=== PATIENT | male | born 1980 | race Two or more races ===

== ENCOUNTER 2017-04-06 16:24 | Emergency (ER) | payer MEDICAID ==
[2017-04-06 16:30] VITALS: RESP 16
--- NOTE | 2017-04-06 16:48 | EDPHY ---
H & P Stated Complaint: Sent to ED for eval of DVT LLE;ACL repair last week in [place] Time Seen by Provider: 04/06/17 16:48 HPI/ROS: CHIEF COMPLAINT: Left calf pain, recent ACL surgery HISTORY OF PRESENT ILLNESS: The patient presents to the ED with left calf pain following recent ACL surgery 1 week ago. The patient had an outpatient ultrasound ordered which demonstrated a DVT in his leg. The patient has no complaints of chest pain or difficulty breathing. The patient has no prior history of PE or DVT. The patient complains of mild pain in the calf without the associated fever or neurologic symptoms. REVIEW OF SYSTEMS: A comprehensive 10 point review of systems is otherwise negative aside from elements mentioned in the history of present illness. Source: Patient - Personal History Current Tetanus Diphtheria and Acellular Pertussis (TDAP): Yes - Medical/Surgical History Other PMH: ACL repair - Social History Smoking Status: Never smoked - Physical Exam Exam: General Appearance: Alert, no distress Eyes: Pupils equal and round no pallor or injection ENT, Mouth: Mucous membranes moist Respiratory: There are no retractions, lungs are clear to auscultation Cardiovascular: Regular rate and rhythm Gastrointestinal: Abdomen is soft and nontender, no masses, bowel sounds normal Neurological: 5/5 strength noted throughout the bilateral lower extremities Skin: Warm and dry, no rashes Musculoskeletal: Neck is supple nontender Extremities: Left calf tenderness, in knee immobilizer Constitutional: Initial Vital Signs Temperature (C) 36.7 C 04/06/17 16:27 Heart Rate 70 04/06/17 16:27 Respiratory Rate 16 04/06/17 16:27 Blood Pressure 130/75 H 04/06/17 16:27 O2 Sat (%) 96 04/06/17 16:27 O2 Delivery Mode Room Air Allergies/Adverse Reactions: No Known Allergies Allergy (Verified 04/06/17 16:27) Home Medications: Medication Instructions Recorded Enoxaparin [Lovenox 80 MG (*)] 80 mg SQ BID #10 syr 04/06/17 Warfarin Sodium [Coumadin 5MG (*)] 5 mg PO DAILY #20 tab 04/06/17 Medical Decision Making - Diagnostics Imaging Results: Imaging Impressions Extremity Venous Study 04/06/17 15:15 Impression: 1. Occlusive thrombosis involving the left gastrocnemius vein. 2. No involvement of the popliteal vein or veins of the thigh. Findings discussed with the physician psychiatric technician assistant working with Dr. Troy Dunlap on 04/06/2017 at 1605 hours. ED Course/Re-evaluation: The patient presents to the ED with an isolated gastroc vein thrombosis following knee surgery. The patient will be anticoagulated with Lovenox and Coumadin. The patient will be referred to Dr. Cooper our on-call outpatient primary care provider for follow-up. The patient has been instructed to return to the ED for any chest pain or shortness of breath. I spoke with Dr. Cooper on the telephone and his office will contact the patient tomorrow to schedule a follow-up visit. The patient is also been given Dr. Harris's telephone number in the event he does not hear from the office. He has been instructed of the importance of making sure he has a follow-up visit in the next week. Differential Diagnosis: Differential diagnosis considered includes DVT, cellulitis, abscess, arterial thrombosis - Data Points Laboratory Results: Laboratory Results 04/06/17 16:49 04/06/17 16:49 04/06/17 04/06/17 16:49 16:49 WBC 9.22 10^3/uL 10^3/uL (3.80-9.50) RBC 5.52 10^6/uL 10^6/uL (4.40-6.38) Hgb 16.2 g/dL g/dL (13.7-17.5) Hct 46.2 % % (40.0-51.0) MCV 83.7 fL fL (81.5-99.8) MCH 29.3 pg pg (27.9-34.1) MCHC 35.1 g/dL g/dL (32.4-36.7) RDW 12.5 % % (11.5-15.2) Plt Count 251 10^3/uL 10^3/uL (150-400) Sodium 137 mEq/L mEq/L (134-144) Potassium 4.6 mEq/L mEq/L (3.5-5.2) Chloride 98 mEq/L mEq/L (97-110) Carbon Dioxide 24 mEq/l mEq/l (22-31) Anion Gap 15 mEq/L mEq/L (8-16) BUN 19 mg/dL mg/dL (7-23) Creatinine 1.0 mg/dL mg/dL (0.7-1.3) Estimated GFR > 60 Glucose 83 mg/dL mg/dL (70-100) Calcium 9.9 mg/dL mg/dL (8.5-10.4) Departure - Departure Disposition: Home, Routine, Self-Care Clinical Impression: Left leg DVT Qualifiers: Affected thrombotic vein of extremity: unspecified lower extremity distal vein Chronicity: acute Qualified Code(s): I82.4Z2 - Acute embolism and thrombosis of unspecified deep veins of left distal lower extremity Condition: Good Instructions: Deep Venous Thrombosis (ED) Additional Instructions: 1. Begin Coumadin as directed 5 mg tablet each night. 2. Use Lovenox injections twice daily for next 5 days. 3. You will follow up with Dr. Mario Cooper at the [facility]. His office should contact you tomorrow for a follow-up visit. If you do not hear from them, please contact his office to arrange the ED follow-up. If you have any problem arranging a follow-up visit within the next 2-3 days, please contact the emergency department and asked to speak to the catalytic case operator. Referrals: Mario Cooper MD [[facility] [place] Primary Care Provider] - As per Instructions
[2017-04-06] MEDS ORDERED: ENOXAPARIN 80 MG/0.8 ML SYR SC ONE (17:32)
[2017-04-06 17:37] LABS: ANION GAP 15 mEq/L (8-16); CALCIUM 9.9 mg/dL (8.5-10.4); CARBON DIOXIDE 24 mEq/l (22-31); CHLORIDE 98 mEq/L (97-110); GLOMERULAR FILTRATION RATE > 60; GLUCOSE 83 mg/dL (70-100); POTASSIUM 4.6 mEq/L (3.5-5.2); SODIUM 137 mEq/L (134-144)
[2017-04-06 17:40] LABS: HEMATOCRIT 46.2 % (40.0-51.0); HEMOGLOBIN 16.2 g/dL (13.7-17.5); MEAN CELL HEMOGLOBIN 29.3 pg (27.9-34.1); MEAN CELL HEMOGLOBIN CONCENTR. 35.1 g/dL (32.4-36.7); MEAN CELL VOLUME 83.7 fL (81.5-99.8); RED BLOOD CELL COUNT 5.52 10^6/uL (4.40-6.38); RED CELL DISTRIBUTION WIDTH 12.5 % (11.5-15.2)
[2017-04-06 18:23] VITALS: BP 126/70; PULSE 66; TEMP 97.9; O2SAT 97
== END 2017-04-06 18:23 | disposition home or self-care (01) ==
DX: I82.4Z2 Acute embolism and thrombosis of unspecified deep veins of left distal lower extremity (principal)
CPT/HCPCS: J1650

== ENCOUNTER 2017-04-09 00:03 | Emergency (ER) | payer MEDICAID ==
[2017-04-09 00:08] VITALS: BP 146/81; PULSE 68; RESP 16; TEMP 97.9; O2SAT 96
--- NOTE | 2017-04-09 00:27 | EDPHY ---
H & P Time Seen by Provider: 04/09/17 00:24 HPI/ROS: HPI: Mr. Cronin is a 36 yr, male who presents with Chief Complaint: Left ankle discoloration Location: Left ankle Quality: Discoloration Duration: Today Signs and Symptoms: No radiation, no weakness, no swelling, no fever, no shortness of breath, + bruising Timing: Sudden Severity: Mild Context: Patient had a left knee ACL surgery performed on April 08, [address] Troy Dunlap. He was seen for followup several days later and which the sutures removed and Steri-Strips placed on his knee. He then presented to this emergency room on 04/06/2017, with calf pain and lower extremity swelling. He was subsequently diagnosed with an occlusive left gastrocnemius DVT in placed on Coumadin. He reports that he had his labs drawn today but is unsure of the values. He has another follow-up appointment with his primary care provider on Tuesday. He became concerned today as he presented with a left medial area of bruising on his ankle that was new. Reports compliance with his Coumadin. Modifying Factors: Comment: ROS: Eyes: No blurred vision Respiratory: No shortness of breath, no cough Cardiovascular: No chest pain Gastrointestinal: No nausea, no vomiting no diarrhea Genitourinary: No dysuria Extremities: No myalgias Neurologic: No weakness, no numbness Skin: No rashes Hematologic: No bruising, no bleeding MEDICAL/SURGICAL HISTORY: Generally healthy. ACL repair on left knee. Social History: Employed. Never smoked. Smoking Status: Never smoked Physical Exam: CONSTITUTIONAL: Pleasant well-appearing adult male, awake and alert, no obvious distress HEENT: Atraumatic and normocephalic, PERRL, EOMI. Tympanic membranes clear. . Oropharynx clear, no exudate and moist pink mucosa. Airway patent. No lymphadenopathy. No meningismus. Cardiovascular: Normal S1/S2, regular rate, regular rhythm, without murmur rub or gallop. PULMONARY/CHEST: Symmetrical and nontender. Clear to auscultation bilaterally Good air movement. No accessory muscle usage. ABDOMEN: Soft, nondistended, nontender, no rebound, no guarding, no peritoneal signs, no masses or organomegaly. No CVAT. EXTREMITIES: 2/2 pulses, no deformities, no clubbing, no cyanosis or edema. Left knee recent portal incisions noted that are good approximation with no dehiscence, Steri-Strips in place. No effusion. Stable varus valgus exam. No laxity. Flexion to 120 with full extension. No calf tenderness. Bruising noted to left lower leg with small area of bruising to the medial ankle inferior to the medial malleolus. Foot warm to touch. Capillary refill. Light touch sensation intact except for small area in the medial aspect inferior to the kneecap consistent with lateral cutaneous nerve injury during surgery. Dorsalis pedis and pedal tibialis pulses 2/2 NEUROLOGICAL: no focal neuro deficits. GCS 15. SKIN: Warm and dry, no erythema. no rash. Good capillary refill. Constitutional: Initial Vital Signs Temperature (C) 36.6 C 04/09/17 00:03 Heart Rate 68 04/09/17 00:03 Respiratory Rate 16 04/09/17 00:03 Blood Pressure 146/81 H 04/09/17 00:03 O2 Sat (%) 96 04/09/17 00:03 O2 Delivery Mode Room Air Allergies/Adverse Reactions: No Known Allergies Allergy (Verified 04/06/17 16:27) Home Medications: Medication Instructions Recorded Warfarin Sodium [Coumadin 5MG (*)] 5 mg PO DAILY #20 tab 04/06/17 Medical Decision Making ED Course/Re-evaluation: Patient shows no signs of compartment syndrome, ischemia, cellulitis, neurovascular compromise. Small area of numbness noted where lateral cutaneous nerve which is a common complication following knee surgery Informed patient that I wanted to check his CBC and coags Patient adamantly refused and requested to sign out AMA. Patient is alert and oriented x3 deemed competent to make his own decisions. Risks benefits and alternative treatments were discussed. Patient already has close follow up with PCP in 2 days. Departure - Departure Disposition: Against Medical Advice Clinical Impression: History of knee surgery, Anticoagulated on Coumadin Left leg DVT Qualifiers: Affected thrombotic vein of extremity: unspecified lower extremity distal vein Chronicity: acute Qualified Code(s): I82.4Z2 - Acute embolism and thrombosis of unspecified deep veins of left distal lower extremity Condition: Good Instructions: Warfarin (By mouth), Deep Venous Thrombosis (ED) Additional Instructions: Keep taking Coumadin as prescribed and follow up for a repeat INR level on Tuesday. Follow instructions from Orthopedics related to your knee surgery. Referrals: Mario Cooper MD [[facility] [place] Provider] - 04/12/17 Troy Dunlap MD [Medical Doctor] - As per Instructions
== END 2017-04-09 00:48 | disposition left against medical advice (07) ==
DX: I82.4Z2 Acute embolism and thrombosis of unspecified deep veins of left distal lower extremity (principal); D68.9 Coagulation defect, unspecified; Z79.01 Long term (current) use of anticoagulants; Z98.890 Other specified postprocedural states

== ENCOUNTER 2017-04-11 20:22 | Emergency (ER) | payer MEDICAID ==
[2017-04-11 20:38] VITALS: BP 152/81; PULSE 52; RESP 16; TEMP 98.2; O2SAT 95
--- NOTE | 2017-04-11 21:45 | EDPHY ---
H & P Stated Complaint: Rash to l leg, concerned about reaction to blood thinners Time Seen by Provider: 04/11/17 21:17 HPI/ROS: HPI CHIEF COMPLAINT: Bumps on left leg HISTORY OF PRESENT ILLNESS: This patient very pleasant 36-year-old male, otherwise healthy no significant medical history 2 Fridays ago he had ACL surgery by Dr. Dunlap. Left knee. He is on Coumadin and Lovenox as he subsequently developed a DVT. He presents emergency room less than 12 hours of rash to his left leg. This is a macular papular rash erythematous raised bumps sandpaper feeling around the base of his hair is consistent with most likely folliculitis of the left leg. Unclear exactly why he has this. He has no fever. There is no particular purpura. These do denice. It is located on his left upper thigh and a little bit on his left lower tib-fib region. Past Medical History: No medical history Past Surgical History: Recent ACL surgery complicated by DVT Social History: Denies daily use drugs alcohol tobacco products Family History: Noncontributory. ROS REVIEW OF SYSTEMS: A comprehensive 10 point review of systems is otherwise negative aside from elements mentioned in the history of present illness. Exam Constitutional appears well nontoxic triage nursing summary reviewed, vital signs reviewed, awake/alert. Eyes normal conjunctivae and sclera, EOMI, PERRLA. HENT normal inspection, atraumatic, moist mucus membranes, no epistaxis, neck supple/ no meningismus, no raccoon eyes. Respiratory clear to auscultation bilaterally, normal breath sounds, no respiratory distress, no wheezing. Cardiovascular rate normal, regular rhythm, no murmur, no edema, distal pulses normal. Gastrointestinal soft, non-tender, no rebound, no guarding, normal bowel sounds, no distension, no pulsatile mass. Genitourinary no CVA tenderness. Musculoskeletal no midline vertebral tenderness, full range of motion, no calf swelling, no tenderness of extremities, no meningismus, good pulses, neurovascularly intact. Skin left leg: Maculopapular rash. Fine sandpaper type rash anterior left thigh, and distal tib-fib region. Blanchable. No particular purpura. At the base of the hairs appears to be a folliculitis Neurologic awake, alert and oriented x 3, AAOx3, moves all 4 extremities equally, motor intact, sensory intact, CN II-XII intact, normal cerebellar, normal vision, normal speech. Psychiatric normal mood/affect. Heme/Lymph/Immune no lymphadenopathy. Differential Diagnosis: Includes but is not limited to in a particular order: Left leg folliculitis, cellulitis, contact dermatitis Medical Decision Making: This patient appears well nontoxic no acute distress. Be placed on Keflex. Warm compresses. Appears to be a folliculitis. He understands return emergency room if develops worsening rash, fever worsening leg pain questions or concerns. Re-evaluation: Source: Patient - Personal History Current Tetanus/Diphtheria Vaccine: Yes - Medical/Surgical History Hx Asthma: No Hx Chronic Respiratory Disease: No Hx Diabetes: No Hx Cardiac Disease: No Hx Renal Disease: No Hx Cirrhosis: No Hx Alcoholism: No Hx HIV/AIDS: No Hx Splenectomy or Spleen Trauma: No Other PMH: ACL replacement 04/01/2017, DVT - Social History Smoking Status: Never smoked Constitutional: Initial Vital Signs Temperature (C) 36.8 C 04/11/17 20:34 Heart Rate 52 L 04/11/17 20:34 Respiratory Rate 16 04/11/17 20:34 Blood Pressure 152/81 H 04/11/17 20:34 O2 Sat (%) 95 04/11/17 20:34 O2 Delivery Mode Room Air Allergies/Adverse Reactions: No Known Allergies Allergy (Verified 04/11/17 20:38) Home Medications: Medication Instructions Recorded Warfarin Sodium [Coumadin 5MG (*)] 5 mg PO DAILY #20 tab 04/06/17 Cephalexin [Keflex] 500 mg PO Q6H #28 cap 04/11/17 Enoxaparin Sodium 80 mg SQ BID 04/11/17 Departure - Departure Disposition: Home, Routine, Self-Care Clinical Impression: Folliculitis Condition: Good Instructions: Folliculitis (ED) Additional Instructions: 1. Return emergency room if you have worsening symptoms includes worsening rash , fever questions or concerns. Referrals: NONE *PRIMARY CARE P,. [Primary Care Provider] - As per Instructions Prescriptions: Cephalexin [Keflex] 500 mg PO Q6H #28 cap
[2017-04-11] MEDS ORDERED: CEPHALEXIN 500MG PREPACK#4 BTL TAKEHOME ONE (21:53)
[2017-04-11] MEDS ORDERED: CEPHALEXIN 500 MG CAP PO ONE (21:53)
== END 2017-04-11 22:19 | disposition home or self-care (01) ==
DX: L73.9 Follicular disorder, unspecified (principal); Z79.01 Long term (current) use of anticoagulants

== ENCOUNTER 2017-04-13 14:19 | Emergency (ER) | payer MEDICAID ==
[2017-04-13 14:26] VITALS: BP 128/76; PULSE 90; RESP 18; TEMP 97.7; O2SAT 96
--- NOTE | 2017-04-13 14:56 | EDPHY ---
H & P Stated Complaint: dx dvt l leg last week taking coumadin/now cp Time Seen by Provider: 04/13/17 14:55 HPI/ROS: CHIEF COMPLAINT: 3 day history of chest pain HISTORY OF PRESENT ILLNESS: The patient presents to the ED with a 3 day history of chest pain. The patient was diagnosed with a DVT approximately week ago. He had been on Lovenox and is currently on Coumadin. The patient has been struggling with anxiety since the initiation of this therapy. The patient reportedly saw his primary care provider today and reported symptoms of 3 days of chest pain. This chest pain is nonpleuritic and nonexertional in nature. The patient does report associated anxiety and dyspnea secondary to that condition. The patient reportedly stop taking Lovenox prior to a therapeutic Coumadin level secondary to perceived the precipitation of anxiety. REVIEW OF SYSTEMS: A comprehensive 10 point review of systems is otherwise negative aside from elements mentioned in the history of present illness. Source: Patient Exam Limitations: No limitations - Personal History Current Tetanus/Diphtheria Vaccine: Yes - Medical/Surgical History Hx Asthma: No Hx Chronic Respiratory Disease: No Hx Diabetes: No Hx Cardiac Disease: No Hx Renal Disease: No Hx Cirrhosis: No Hx Alcoholism: No Hx HIV/AIDS: No Hx Splenectomy or Spleen Trauma: No Other PMH: ACL replacement 04/01/2017, DVT - Social History Smoking Status: Never smoked - Physical Exam Exam: General Appearance: Alert, anxious, no acute distress Eyes: Pupils equal and round no pallor or injection ENT, Mouth: Mucous membranes moist Respiratory: There are no retractions, lungs are clear to auscultation Cardiovascular: Tachycardic Gastrointestinal: Abdomen is soft and nontender, no masses, bowel sounds normal Neurological: A&O, normal motor function, normal sensory exam, normal cranial nerves Skin: Warm and dry, no rashes Musculoskeletal: Neck is supple nontender Extremities: symmetrical, full range of motion Constitutional: Initial Vital Signs Temperature (C) 36.5 C 04/13/17 14:24 Heart Rate 90 04/13/17 14:24 Respiratory Rate 18 04/13/17 14:24 Blood Pressure 128/76 H 04/13/17 14:24 O2 Sat (%) 96 04/13/17 14:24 O2 Delivery Mode Room Air Allergies/Adverse Reactions: No Known Allergies Allergy (Verified 04/13/17 14:23) Home Medications: Medication Instructions Recorded Warfarin Sodium [Coumadin 5MG (*)] 5 mg PO DAILY #20 tab 04/06/17 Medical Decision Making ED Course/Re-evaluation: The patient presents to the ED for evaluation of nonpleuritic chest pain and slight dyspnea for the past 3 days. The patient is currently being treated for a very small DVT in his calf. The patient was under the impression that he would get an ultrasound to evaluate his chest complaints. I explained to the patient that the study of choice is a chest CT scan or V/Q scan. The patient has stated that he does want either the studies secondary to concerns about exposure to radiation. The patient is not tachycardic or hypoxemic. The patient has no pleuritic chest pain and I feel pulmonary embolism is on likely however cannot be fully excluded. Nonetheless, the patient is a competent decision maker. He does understand to return to the ED immediately should he reconsider his decision not to have further workup. He will follow up as scheduled with his primary care provider and continue his regular Coumadin. Differential Diagnosis: Differential diagnosis considered includes pulmonary embolism, anxiety, DVT, medication side effect Departure - Departure Disposition: Against Medical Advice Clinical Impression: Chest pain, DVT (deep venous thrombosis) Condition: Good Instructions: Deep Venous Thrombosis (ED) Additional Instructions: 1. Continue your Coumadin. 2. You have declined a chest CT to evaluate for a pulmonary embolism. Please return to the ED for severe shortness of breath or other concerns. Referrals: Mario Cooper MD [[facility] [place] Primary Care Provider] - As per Instructions
--- NOTE | 2017-04-13 15:00 | CPEKG ---
Heart Rate: 73 RR Interval: 822 P-R Interval: 152 QRSD Interval: 92 QT Interval: 372 QTC Interval: 410 P [place]: 41 QRS [place]: 54 T Wave [place]: 38 EKG Severity - NORMAL ECG - EKG Impression: SINUS RHYTHM Electronically Signed By: Azar Person 13-Apr-2017 16:26:18
[2017-04-13] MEDS ORDERED: IOPAMIDOL (ISOVUE 370) 100 ML BTL IV ONE (15:45)
== END 2017-04-13 16:11 | disposition left against medical advice (07) ==
DX: R07.9 Chest pain, unspecified (principal); I82.409 Acute embolism and thrombosis of unspecified deep veins of unspecified lower extremity
CPT/HCPCS: Q9967

== ENCOUNTER 2017-04-14 16:18 | Emergency (ER) | payer MEDICAID ==
[2017-04-14 16:26] VITALS: BP 143/90; PULSE 86; RESP 18; TEMP 97.9; O2SAT 98
== END 2017-04-14 17:10 | disposition left against medical advice (07) ==
DX: Z53.21 Procedure and treatment not carried out due to patient leaving prior to being seen by health care provider (principal)

== ENCOUNTER → 2017-07-22 | Outpatient (CLI) | payer MEDICAID | LOC: BMCIMAGING 07-18 15:01 | PROVIDERS: ATTEND Family Medicine | DX: Z86.718 Personal history of other venous thrombosis and embolism (principal) ==

== ENCOUNTER → 2017-09-16 | Outpatient (CLI) | payer MEDICAID | LOC: FIMAGING 13:26 | PROVIDERS: ATTEND Registered Nurse General Practice | DX: N63.20 Unspecified lump in the left breast, unspecified quadrant (principal) ==